=== PATIENT | female | born 1980 | race Hispanic/Latino ===

== ENCOUNTER 2017-02-11 18:19 | Emergency (ER) | payer SELFPAY ==
[2017-02-11 19:11] LABS: Basophils % (Auto) 0.7 % (0.0-1.8); Eosinophils % (Auto) 1.7 % (0.0-4.3); Hematocrit 42.3 % (30.3-42.9); Hemoglobin 14.6 gm/dl (10.1-14.3); Mean Corpuscular HGB Conc 35 % (30-34); Mean Corpuscular Hemoglobin 32 pg (28-32); Mean Corpuscular Volume 92 fl (79-97); Platelet Count 199 K/mm3 (140-440); Red Blood Count 4.61 M/mm3 (3.65-5.03); Red Cell Distribution Width 13.3 % (13.2-15.2); White Blood Count 5.9 K/mm3 (4.5-11.0)
[2017-02-11 19:16] LABS: Anion Gap 20 mmol/L; BUN/Creatinine Ratio 15.71; Blood Urea Nitrogen 11 mg/dL (7-17); Calcium 9.2 mg/dL (8.4-10.2); Carbon Dioxide 23 mmol/L (22-30); Chloride 100.8 mmol/L (98-107); Glucose 115 mg/dL (65-100); Potassium 3.5 mmol/L (3.6-5.0); Sodium 140 mmol/L (137-145)
[2017-02-11] MEDS ORDERED: CATAPRES ONE (20:30)
[2017-02-11 21:03] LABS: INR 0.91 (0.87-1.13)
[2017-02-11 21:04] LABS: Partial Thromboplastin Time 24.6 Sec. (24.2-36.6)
[2017-02-11 21:51] LABS: Bilirubin,Urine NEG (Negative); Blood,Urine SM (Negative); Ketones,Urine NEG (Negative); Leukocyte Esterase,Urine TR (Negative); Mucus,Urine 1+ /HPF; Protein,Urine <15 mg/dL mg/dL (Negative); Urobilinogen,Urine < 2.0 mg/dL (<2.0)
[2017-02-11 21:53] LABS: Bacteria,Urine 2+ /HPF (Negative); Nitrite,Urine Positive (Negative)
[2017-02-11 23:40] VITALS: BP 152/93
[2017-02-12] MEDS ORDERED: CATAPRES PO ONE (03:12)
--- NOTE | 2017-02-12 07:41 | XRay Report ---
ROUTINE CHEST, TWO VIEWS: HISTORY: chest pain. The trachea, heart, mediastinal contour, lung ruiz and bony thorax are unremarkable. IMPRESSION: Unremarkable chest x-ray.
== END 2017-02-12 01:15 | disposition left against medical advice (07) ==
LOC: ED 18:19
DX: R07.9 Chest pain, unspecified (principal); Z53.21 Procedure and treatment not carried out due to patient leaving prior to being seen by health care provider
CPT/HCPCS: 36415; 71020; 80048; 81001; 81025; 84484; 85025; 85610; 85730; 93005; 93010

== ENCOUNTER 2018-02-05 09:45 | Emergency (ER) | payer OTHER ==
[2018-02-05 09:52] VITALS: BP 141/79
--- NOTE | 2018-02-05 11:49 | Emergency Department Report ---
Minor Respiratory - HPI Chief Complaint: Dyspnea/Respdistress Stated Complaint: SOB Time Seen by Provider: 02/05/18 11:16 Duration: Today Severity: mild Minor Respiratory: Yes Able to Tolerate Fluids, Yes Shortness of Breath, No Rhinorrhea, No Sore Throat, No Ear Pain, No Cough, No Sick Contacts, No Hemoptysis, No Chest Pain, No Fever Other History: This is a 37-year-old female presents with lightheadedness and shortness of breath that started last night. Patient reports waking out of sleep last night and feeling short of breath. She is out of medication so she returned to sleep and felt okay when she woke up this morning. She went to work this morning and took prescribed medications. The only new medication is Cipro for urinary tract infection. When she got to work she started feeling lightheaded with a headache and passed out. Coworkers called ambulance and EMS brought her in for evaluation. Patient reports blood pressure was 170/125 in the ambulance and given medication but unsure what was given. Patient reports being off of medication for 8 months and went to the health Department yesterday and received refills of medication. States they were unable to refill Xanax for anxiety and referred her to a mental health walk in clinic on [facility]. She has not had time to follow-up with mental health clinic. Prior to passing out today she fell chest tightness, right flank pain and given coworkers inhaler which improved shortness of breath. Patient reports currently no chest pain or flank pain at this time. ED Review of Systems ROS: Stated complaint: SOB Other details as noted in HPI Constitutional: denies: chills, fever Respiratory: shortness of breath, SOB with exertion. denies: cough, wheezing Cardiovascular: denies: chest pain, palpitations, edema, syncope Gastrointestinal: denies: abdominal pain, nausea, vomiting, diarrhea Neurological: denies: headache, weakness, paresthesias Psychiatric: denies: anxiety, depression ED Past Medical Hx - Past Medical History Previous Medical History?: Yes Hx Hypertension: Yes (during ) Hx Asthma: Yes Hx HIV: Yes - Surgical History Past Surgical History?: Yes Additional Surgical History: , Cervical biopsy - Social History Smoking Status: Former Smoker Substance Use Type: Alcohol, Prescribed - Medications Home Medications: Home Medications Medication Instructions Recorded Confirmed Last Taken Type ALBUTEROL Inhaler [ProAir HFA 1 puff IH Q4-6H PRN #1 inha 02/05/18 Unknown Rx Inhaler] Minor Respiratory Exam - Exam General: Vital signs noted. No distress. Alert and acting appropriately. HEENT: Yes Moist Mucous Membranes, No Pharyngeal Erythema, No Pharyngeal Exudates, No Rhinorrhea, No Conjuctival Injection, No Frontal Tenderness, No Maxillary Tenderness Ear: Neither TM Bulge, Neither TM Erythema, Neither EAC Pain, Neither EAC Discharge Neck: Yes Supple, No Adenopathy Lungs: Yes Good Air Exchange, No Wheezes, No Ronchi, No Stridor, No Cough, No Labored Respirations, No Retractions, No Use of Accessory Muscles, No Other Abnormal Lung Sounds Heart: Yes Regular, No Murmur Abdomen: Yes Normal Bowel Sounds, No Tenderness, No Peritoneal Signs Skin: No Rash, No Edema Neurologic: Alert and oriented, no deficits. Musculoskeletal: Unremarkable. ED Course Vital Signs 02/05/18 09:46 Temperature 98.2 F Pulse Rate 72 Respiratory 18 Rate Blood Pressure 141/79 O2 Sat by Pulse 97 Oximetry ED Medical Decision Making - Lab Data Result diagrams: 02/05/18 12:00 02/05/18 12:07 - Radiology Data Radiology results: report reviewed Chest 2 views: History: Normal cardiomediastinal silhouette. Trachea is midline. Suspicious nodule superior aspect of right hilum. Nodes in previous study. Normal CP angles. Impression: Suspicion of nodule right upper lobe. Recommend CT scan for further evaluation. - Medical Decision Making 37 y.o. female that presents with SOB and lightheadedness that started today at work. Patient examined by me in ER. History of HIV, asthma, current smoker, and hypertension. She has been off medication for the past 8 months. Started medication yesterday after refills from health Department. Patient is in no acute distress. Vitals stable. Obtained CMP, CBC, d-dimer, and chest xray. Normal d-dimer, low sodium, negative serum HCG. Suspicion of nodule right upper lobe. Recommend CT scan for further evaluation. Normal physical assessment. Continue current medication. Follow-up with primary care provider for repeat CT scan for further evaluation of nodule in right upper lobe. Refills albuterol inhaler. Discharged home stable. Return to work tomorrow. Critical care attestation.: If time is entered above; I have spent that time in minutes in the direct care of this critically ill patient, excluding procedure time. ED Disposition Clinical Impression: Asthma Qualifiers: Asthma severity: mild Asthma persistence: intermittent Asthma complication type : uncomplicated Qualified Code(s): J45.20 - Mild intermittent asthma, uncomplicated Syncope Qualifiers: Syncope type: unspecified Qualified Code(s): R55 - Syncope and collapse Disposition: TO HOME OR SELFCARE Is pt being admited?: No Does the pt Need Aspirin: No Condition: Stable Instructions: Asthma (ED), Syncope (ED) Additional Instructions: Follow-up with primary care provider in 2-[address] scan of chest to evaluate right upper lobe nodule with primary care provider. Return to the emergency room if short of breath, chest pain, fever, and difficulty breathing. Prescriptions: ALBUTEROL Inhaler [ProAir HFA Inhaler] 1 puff IH Q4-6H PRN #1 inha PRN Reason: Shortness Of Breath Referrals: [facility] [Outside] - 3-5 Days [facility] [Outside] - 3-5 Days [facility] [Outside] - 3-5 Days Forms: Work/School Release Form(ED) Time of Disposition: 15:32 Print Language: VIETNAMESE
[2018-02-05 12:31] LABS: Hematocrit 41.9 % (30.3-42.9); Hemoglobin 14.7 gm/dl (10.1-14.3); Mean Corpuscular HGB Conc 35 % (30-34); Mean Corpuscular Hemoglobin 31 pg (28-32); Mean Corpuscular Volume 89 fl (79-97); Platelet Count 178 K/mm3 (140-440); Red Blood Count 4.71 M/mm3 (3.65-5.03); Red Cell Distribution Width 13.5 % (13.2-15.2)
[2018-02-05 13:08] LABS: Alanine Aminotransferase 11 units/L (7-56); Albumin 3.8 g/dL (3.9-5); BUN/Creatinine Ratio 14; Blood Urea Nitrogen 10 mg/dL (7-17); Calcium 8.5 mg/dL (8.4-10.2); Hemolysis Index 28
--- NOTE | 2018-02-05 13:27 | XRay Report ---
Chest 2 views: History: Normal cardiomediastinal silhouette. Trachea is midline. Suspicious nodule superior aspect of right hilum. Nodes in previous study. Normal CP angles. Impression: Suspicion of nodule right upper lobe. Recommend CT scan for further evaluation.
== END 2018-02-05 15:54 | disposition home or self-care (01) ==
LOC: ED 09:45
DX: J45.20 Mild intermittent asthma, uncomplicated (principal); R55 Syncope and collapse; R03.0 Elevated blood-pressure reading, without diagnosis of hypertension; F41.9 Anxiety disorder, unspecified; Z88.2 Allergy status to sulfonamides
CPT/HCPCS: 36415; 71046; 80053; 83735; 84703; 85027; 85379